=== PATIENT | male | born 1935 | race Caucasian/White ===

== ENCOUNTER 2019-07-06 22:26 | Emergency (ER) | payer MEDICARE, BC ==
--- NOTE | 2019-07-06 23:23 | EDM.PDOC ---
ED HPI GENERAL MEDICAL PROBLEM - General Chief Complaint: Chest Pain Stated Complaint: PAIN SHOULDER BLADE AND CHEST PAIN Time Seen by Provider: 07/06/19 22:48 Source of Information: Reports: Patient History Limitations: Reports: No Limitations - History of Present Illness INITIAL COMMENTS - FREE TEXT/NARRATIVE: This is an 84-year-old male. For the last 19 months he has been having an upper abdominal sensation of a guey rotten nauseas feeling. He was worked up by several physicians but they couldn't find anything so he got a new physician who did a CT scan of his chest that showed some emphysema and a 6 mm stone in the right renal pelvis that might cause intermittent obstruction of the UPJ. This does not seem to be the reason he is having these symptoms so they did an MRI of his abdomen showed a dilated common bile duct 1.4 cm however he is status post cholecystectomy and they did not see any residual stone also had some filling defects compatible with renal stones in the right kidney as seen on the CT scan but no other acute findings. They sent him down to a urologist in [place] Dr. 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 He was therefore sent down to Dr. Ordoñez who is going to be doing a coronary angiogram on the . In the meantime he still having this sensation. He is noted over the last couple of days that his left upper back is been somewhat sensitive and tender and tonight he had some sharp pain in the left shoulder blade when he was leaning against it he then had a sudden stabbing pain in his left anterior pectoralis area with a short hot spell and felt kind of shaky. At no time did he have any sort of chest tightness or pressure, no sweating no shortness of breath no radiation of anything into the jaw into the left axilla or down his left arm. But due to this sharp stabbing pain he comes to the ER for evaluation. Presently he says his left upper back is still bothering him slightly but his left chest is not. He denies any other acute symptoms. So once he gets the corneal angiogram and they find out what's going on and take care of it then he'll be scheduled for this lithotripsy as well as for upper endoscopy by GI. - Related Data Allergies Allergy/AdvReac Type Severity Reaction Status Date / Time No Known Allergies Allergy Verified 07/06/19 22:32 Home Meds: Home Meds . [No Known Home Meds] 07/06/19 [History] Past Medical History HEENT History: Reports: Impaired Vision Other HEENT History: Wears glasses Genitourinary History: Reports: Renal Calculus - Past Surgical History GI Surgical History: Reports: Appendectomy, Cholecystectomy, Hernia Repair/Other Social & Family History - Tobacco Use Smoking Status *Q: Never Smoker - Recreational Drug Use Recreational Drug Use: No ED ROS GENERAL - Review of Systems Review Of Systems: See Below Constitutional: Reports: Weakness. Denies: Fever, Chills HEENT: Reports: Other (Periodic blurred vision and maybe some lightheadedness or dizziness) Respiratory: Denies: Shortness of Breath, Cough Cardiovascular: Reports: Chest Pain. Denies: Dyspnea on Exertion, Syncope Endocrine: Reports: No Symptoms GI/Abdominal: Reports: Other (This strange upper abdominal sensation that is been going on for 19 months) : Reports: No Symptoms Musculoskeletal: Reports: Back Pain Skin: Reports: No Symptoms Neurological: Reports: Dizziness, Tremors. Denies: Headache, Paresthesia, Seizure, Syncope, Tingling, Difficulty Walking Psychiatric: Reports: No Symptoms Hematologic/Lymphatic: Reports: No Symptoms ED EXAM, GENERAL - Physical Exam Exam: See Below Exam Limited By: No Limitations General Appearance: Alert, WD/WN, No Apparent Distress Eye Exam: Bilateral Eye: Normal Inspection Ears: Normal External Exam Nose: Normal Inspection Throat/Mouth: Normal Inspection, Normal Lips, Normal Voice, No Airway Compromise Head: Normocephalic Neck: Supple Respiratory/Chest: No Respiratory Distress, Lungs Clear, Normal Breath Sounds, Other (Palpation of the pectoralis muscle in his anterior chest wall and the left I cannot really produce any sort of soreness or tenderness or sharp pain) Cardiovascular: Regular Rate, Rhythm, Diastolic Murmur, Other (There is a click and a diastolic murmur noted) GI/Abdominal: Soft, Non-Tender, No Organomegaly Back Exam: Normal Inspection, Full Range of Motion, Other (He does have rhomboid muscle tenderness and paraspinal muscle tenderness adjacent to the left scapula but no right upper back tenderness, I can reproduce on palpation of the paraspinal muscles the sensation he was having when he leans against his left upper back) Extremities: Normal Inspection, Normal Range of Motion. No: Pedal Edema Neurological: Alert, Oriented, CN II-XII Intact, No Motor/Sensory Deficits Psychiatric: Normal Affect, Normal Mood Skin Exam: Warm, Dry EKG INTERPRETATION EKG Date: 07/06/19 Time: 20:40 EKG Interpretation Comments: EKG shows a normal sinus rhythm rate of 73, there are no acute ST or T-wave changes, there is no acute ischemia noted, essentially he has a normal electrical pattern noted. Course - Vital Signs Last Recorded V/S: Last Vital Signs Temp 97.8 F 07/06/19 22:32 Pulse 82 07/06/19 22:32 Resp 15 07/06/19 22:32 BP 161/92 H 07/06/19 22:32 Pulse Ox 98 07/06/19 22:32 - Orders/Labs/Meds Orders: Active Orders 24 hr Category Date Time Status EKG Documentation Completion [RC] STAT Care 07/06/19 22:37 Active Chest 2V [CR] Stat Exams 07/06/19 23:14 Taken Labs: Laboratory Tests 07/06/19 07/06/19 07/07/19 Range/Units 22:40 22:40 00:53 WBC 8.62 (4.23-9.07) K/mm3 RBC 4.84 (4.63-6.08) M/mm3 Hgb 15.4 (13.7-17.5) gm/dl Hct 44.1 (40.1-51.0) % MCV 91.1 (79.0-92.2) fl MCH 31.8 (25.7-32.2) pg MCHC 34.9 (32.2-35.5) g/dl RDW Std Deviation 44.1 H (35.1-43.9) fL Plt Count 235 (163-337) K/mm3 MPV 9.5 (9.4-12.3) fl Neut % (Auto) 64.1 (34.0-67.9) % Lymph % (Auto) 24.9 (21.8-53.1) % [place] % (Auto) 8.1 (5.3-12.2) % Eos % (Auto) 2.2 (0.8-7.0) Baso % (Auto) 0.6 (0.1-1.2) % Neut # (Auto) 5.52 H (1.78-5.38) K/mm3 Lymph # (Auto) 2.15 (1.32-3.57) K/mm3 [place] # (Auto) 0.70 (0.30-0.82) K/mm3 Eos # (Auto) 0.19 (0.04-0.54) K/mm3 Baso # (Auto) 0.05 (0.01-0.08) K/mm3 Sodium 141 (136-145) mEq/L Potassium 4.1 (3.5-5.1) mEq/L Chloride 104 (98-107) mEq/L Carbon Dioxide 29 (21-32) mEq/L Anion Gap 12.1 (5-15) BUN 19 H (7-18) mg/dL Creatinine 1.2 (0.7-1.3) mg/dL Est Cr Clr Drug Dosing 43.61 mL/min Estimated GFR (MDRD) 58 (>60) mL/min BUN/Creatinine Ratio 15.8 (14-18) Glucose 104 (83-115) mg/dL Calcium 8.6 (8.5-10.1) mg/dL Total Bilirubin 0.5 (0.2-1.0) mg/dL AST 20 (15-37) U/L ALT 28 (16-63) U/L Alkaline Phosphatase 76 (46-116) U/L Troponin I < 0.017 < 0.017 (0.00-0.056) ng/mL Total Protein 6.9 (6.4-8.2) g/dl Albumin 3.7 (3.4-5.0) g/dl Globulin 3.2 gm/dL Albumin/Globulin Ratio 1.2 (1-2) - Radiology Interpretation Free Text/Narrative:: Chest x-ray does not show any acute lung changes, cardiac size is within normal limits, there is no obvious widened mediastinum. - Re-Assessments/Exams Free Text/Narrative Re-Assessment/Exam: 07/07/19 01:43 I spoke to the patient regarding his 2 negative cardiac enzymes over the last 2- 1/2 hours. I believe that his pain he had tonight was musculoskeletal in his upper back and possibly even his anterior chest. He went over again symptoms of cardiac pain which is typically tightness or squeezing or pressure oftentimes with sweating or shortness of breath and the pain sometimes radiates into the left jaw with a left armpit or down the left arm and if any of those occur he needs to return to the ER. Departure - Departure Time of Disposition: 01:44 Disposition: Home, Self-Care 01 Condition: Fair Clinical Impression: Musculoskeletal back pain, Chest pain, atypical Instructions: Musculoskeletal Pain Referrals: Robert Junior MD [Primary Care Provider] - Forms: ED Department Discharge Additional Instructions: Kidney with your Tylenol as needed for the discomfort, try heat or ice to the back as needed for the discomfort, continue with your cardiac workup and the angiogram, if your symptoms change and you have more of a pressure, tightness, squeezing sensation in the chest along with shortness of breath or sweating or possibly the pain going to your left jaw or into your left shoulder or down your left arm you need to return to the ER, follow-up with your family doctor as needed - My Orders Last 24 Hours: My Active Orders 07/06/19 22:37 EKG Documentation Completion [RC] STAT 07/06/19 23:14 Chest 2V [CR] Stat - Assessment/Plan Last 24 Hours: My Active Orders 07/06/19 22:37 EKG Documentation Completion [RC] STAT 07/06/19 23:14 Chest 2V [CR] Stat
--- NOTE | 2019-07-07 08:36 | CR ---
Chest: 2 views of the chest were obtained. Comparison: Prior chest CT study of 05/23/19, no prior chest x-rays available. Heart size is normal. Slight nodular density is noted within the left base. This is most likely due to mild scarring within the lingula as seen on chest CT. Lungs otherwise are clear. Bony structures appear unremarkable. Diaphragms are slightly flattened suggesting slight emphysematous change. Scattered degenerative endplate spurring is noted within the spine. Impression: 1. Mild emphysematous change. 2. Other findings as noted above which are felt to be incidental. 3. Nothing acute is seen on 2 view chest x-ray. Diagnostic code #2
== END 2019-07-07 01:57 | disposition home or self-care (01) ==
LOC: JD.ED 22:26
DX: M54.6 Pain in thoracic spine (principal); R07.89 Other chest pain
CPT/HCPCS: 36415; 71046; 71046-26; 80053; 84484; 85025; 93005; 93010; 99283; 99285-25

== ENCOUNTER 2020-05-25 08:54 | Emergency (ER) | payer MEDICARE, BC ==
--- NOTE | 2020-05-25 09:37 | EDM.PDOC ---
ED HPI GENERAL MEDICAL PROBLEM - General Chief Complaint: Chest Pain Stated Complaint: CHEST DISCOMFORT/ABDOMINAL PAIN Time Seen by Provider: 05/25/20 09:09 Source of Information: Reports: Patient History Limitations: Reports: No Limitations - History of Present Illness INITIAL COMMENTS - FREE TEXT/NARRATIVE: The patient presents with left upper back, left chest and left upper abdominal pain. This is a chronic problem. He said this all started when he fell getting out of a [place] in 2018. He had this pain constantly since then. He has seen multiple doctors and multiple specialists. He will get flair ups at times. He said last week he had an epidural injection done and he thought the pain was better but it came back just as strong the past couple of days. He has no fever, chills, or cough. He is waiting for a COVID 19 test result so he can seen ENT tomorrow. That was negative. He said some flexeril helped in the past. His on tramadol with tylenol for pain. Onset: Gradual Duration: Week(s): (2 years) Location: Reports: Chest, Abdomen, Back Quality: Reports: Sharp Severity: Moderate Improves with: Reports: Immobilization Worsens with: Reports: Breathing, Movement Associated Symptoms: Reports: Chest Pain. Denies: Cough, Fever/Chills, Headaches, Nausea/Vomiting, Shortness of Breath Chest Pain Score (Numeric/FACES): 8 - Related Data Allergies Allergy/AdvReac Type Severity Reaction Status Date / Time No Known Allergies Allergy Verified 05/25/20 09:14 Home Meds: Home Meds Cyclobenzaprine [Flexeril] 5 mg PO TID PRN #20 tab 05/25/20 [Rx] Past Medical History HEENT History: Reports: Impaired Vision Other HEENT History: Wears glasses Genitourinary History: Reports: Renal Calculus - Past Surgical History GI Surgical History: Reports: Appendectomy, Cholecystectomy, Hernia Repair/Other Social & Family History - Tobacco Use Smoking Status *Q: Never Smoker ED ROS GENERAL - Review of Systems Review Of Systems: See Below Constitutional: Reports: No Symptoms HEENT: Reports: No Symptoms Respiratory: Reports: No Symptoms Cardiovascular: Reports: Chest Pain Endocrine: Reports: No Symptoms GI/Abdominal: Reports: Abdominal Pain : Reports: No Symptoms Musculoskeletal: Reports: Back Pain ED EXAM, GENERAL - Physical Exam Exam: See Below Exam Limited By: No Limitations General Appearance: Alert, No Apparent Distress Ears: Normal External Exam Nose: Normal Inspection Head: Atraumatic, Normocephalic Neck: Normal Inspection Respiratory/Chest: No Respiratory Distress, Lungs Clear, Normal Breath Sounds Cardiovascular: Regular Rate, Rhythm, No Edema, No Murmur GI/Abdominal: Soft, Non-Tender, No Organomegaly, No Mass Back Exam: Other (Pain upon palpation to the left upper back) Extremities: Normal Inspection EKG INTERPRETATION EKG Date: 05/25/20 Time: 09:05 Rhythm: NSR Rate (Beats/Min): 88 [place]: Normal P-Wave: Present QRS: Normal ST-T: Normal QT: Normal Course - Vital Signs Last Recorded V/S: Last Vital Signs Temp 97.6 F 05/25/20 09:09 Pulse 86 05/25/20 09:09 Resp 18 05/25/20 09:09 BP 137/62 05/25/20 09:09 Pulse Ox 97 05/25/20 09:09 - Orders/Labs/Meds Orders: Active Orders 24 hr Category Date Time Status EKG 12 Lead [EKG Documentation Completion] [RC] STAT Care 05/25/20 09:19 Active - Re-Assessments/Exams Free Text/Narrative Re-Assessment/Exam: 05/25/20 09:37 I ordered an EKG and that shows a NSR with no acute changes. I will get him a prescription for some flexeril. Departure - Departure Time of Disposition: 09:40 Disposition: Home, Self-Care 01 Condition: Good Clinical Impression: Chest pain, atypical Chronic back pain Qualifiers: Back pain location: thoracic back pain Back pain laterality: left Qualified Code(s): M54.6 - Pain in thoracic spine; G89.29 - Other chronic pain Prescriptions: Cyclobenzaprine [Flexeril] 5 mg PO TID PRN #20 tab PRN Reason: Pain Additional Instructions: Take your medicine as prescribed. Take the flexeril every 8 hours as needed for pain. Follow up with Dr Crnae within a week. Follow up with the ENT doctor tomorrow. Please return if you are worse. Sepsis Event Note (ED) - Evaluation Sepsis Screening Result: No Definite Risk - Focused Exam Vital Signs: Vital Signs Temp Pulse Resp BP Pulse Ox 05/25/20 09:09 97.6 F 86 18 137/62 97 - My Orders Last 24 Hours: My Active Orders 05/25/20 09:19 EKG 12 Lead [EKG Documentation Completion] [RC] STAT - Assessment/Plan Last 24 Hours: My Active Orders 05/25/20 09:19 EKG 12 Lead [EKG Documentation Completion] [RC] STAT
== END 2020-05-25 09:45 | disposition home or self-care (01) ==
LOC: JD.ED 08:54
DX: R07.89 Other chest pain (principal); M54.6 Pain in thoracic spine; G89.29 Other chronic pain; R10.12 Left upper quadrant pain; Z90.49 Acquired absence of other specified parts of digestive tract; Z79.899 Other long term (current) drug therapy
CPT/HCPCS: 93005; 93010; 99283; 99284-25

== ENCOUNTER 2021-09-05 15:26 | Emergency (ER) | payer MEDICARE, BC ==
[2021-09-05] MEDS ORDERED: Ondansetron 4 MG/2 ML SDV IVPUSH ONE (15:48)
[2021-09-05] MEDS ORDERED: Sodium Chloride 0.9% 10 ML Syringe FLUSH PRN (15:48)
[2021-09-05] MEDS ORDERED: Sodium Chloride 0.9% 1,000 ML IV SCH (16:00)
[2021-09-05] MEDS ORDERED: Famotidine 20 MG/2 ML SDV IVPUSH ONE (16:07)
[2021-09-05] MEDS ORDERED: diphenhydrAMINE 50 MG/ML SDV IVPUSH ONE (16:07)
[2021-09-05] MEDS ORDERED: LORazepam 2 MG/ML SDV IVPUSH ONE (16:07)
--- NOTE | 2021-09-05 16:41 | EDM.PDOC ---
ED HPI GENERAL MEDICAL PROBLEM - General Chief Complaint: Gastrointestinal Problem Stated Complaint: DIZZY/VOMITING/SHAKY Time Seen by Provider: 09/05/21 15:36 Source of Information: Reports: Patient, Family History Limitations: Reports: No Limitations - History of Present Illness INITIAL COMMENTS - FREE TEXT/NARRATIVE: The patient presents with nausea, vomiting and shakiness. He had a SHIRA scan done for Parkinson's on in [place]. He said after that he had episodes of shaking. He said his whole body will shake. He is aware of everything when it happens. He can also walk around. He has never had this happen before. It comes and goes and the longest episode was about 2 hours. He also has some nausea and vomiting. He has no diarrhea. He has no fever, chi lls, cough, chest pain or shortness of breath. He is the most concerned about the shaking he is having. Onset: Gradual Duration: Day(s): (4) Location: Reports: Generalized Severity: Moderate Improves with: Reports: None Worsens with: Reports: None Associated Symptoms: Reports: Nausea/Vomiting. Denies: Chest Pain, Cough, Fever/Chills, Headaches, Shortness of Breath - Related Data Allergies Allergy/AdvReac Type Severity Reaction Status Date / Time No Known Allergies Allergy Verified 09/05/21 15:45 Home Meds: Home Meds Cyclobenzaprine [Flexeril] 5 mg PO TID PRN #20 tab 05/25/20 [Rx] Acetaminophen 325 mg PO Q6H PRN 09/05/21 [History] Cholecalciferol (Vitamin D3) [Vitamin D3] 25 mcg PO DAILY 09/05/21 [History] Pantoprazole Sodium [Protonix] 40 mg PO DAILY 09/05/21 [History] Zinc 50 mg PO DAILY 09/05/21 [History] buPROPion [buPROPion XL] 150 mg PO DAILY 09/05/21 [History] predniSONE [Prednisone] 20 mg PO DAILY #5 tablet 09/05/21 [Rx] traMADol [Ultram] 50 mg PO Q6HR PRN 09/05/21 [History] Past Medical History HEENT History: Reports: Impaired Vision Other HEENT History: Wears glasses Genitourinary History: Reports: Renal Calculus - Past Surgical History GI Surgical History: Reports: Appendectomy, Cholecystectomy, Hernia Repair/Other ED ROS GENERAL - Review of Systems Review Of Systems: See Below Constitutional: Reports: Malaise, Weakness, Fatigue. Denies: Fever, Chills HEENT: Reports: No Symptoms Respiratory: Reports: No Symptoms Cardiovascular: Reports: No Symptoms Endocrine: Reports: No Symptoms GI/Abdominal: Reports: Nausea, Vomiting. Denies: Abdominal Pain, Diarrhea : Reports: No Symptoms Musculoskeletal: Reports: No Symptoms Neurological: Reports: Other (shaking). Denies: Headache, Numbness, Tingling, Weakness ED EXAM, GI/ABD - Physical Exam Exam: See Below Exam Limited By: No Limitations General Appearance: Alert, No Apparent Distress Ears: Normal External Exam Nose: Normal Inspection Head: Atraumatic, Normocephalic Neck: Normal Inspection Respiratory/Chest: No Respiratory Distress, Lungs Clear, Normal Breath Sounds Cardiovascular: Regular Rate, Rhythm, No Edema, No Murmur GI/Abdominal Exam: Soft, Non-Tender, No Organomegaly, No Mass Back Exam: Normal Inspection Extremities: Normal Inspection #1 Interpretation EKG Date: 09/05/21 Time: 15:57 Rhythm: NSR Rate (Beats/Min): 96 [place]: Normal P-Wave: Present QRS: Normal ST-T: Normal QT: Normal EKG Interpretation Comments: PACs Course - Vital Signs Last Recorded V/S: Last Vital Signs Temp 98.5 F 09/05/21 15:42 Pulse 105 H 09/05/21 15:42 Resp 35 H 09/05/21 15:42 BP 144/66 H 09/05/21 15:42 Pulse Ox 92 L 09/05/21 15:42 - Orders/Labs/Meds Orders: Active Orders 24 hr Category Date Time Status Orthostatic Vital Signs [RC] ASDIRECTED Care 09/05/21 15:49 Active Peripheral IV Care [RC] . DIRECTED Care 09/05/21 15:49 Active Sodium Chloride 0.9% [Saline Flush] Med 09/05/21 15:48 Active 10 ml FLUSH ASDIRECTED PRN Peripheral IV Insertion Adult [OM.PC] Stat Oth 09/05/21 15:49 Ordered Medication Orders Sodium Chloride (Sodium Chloride 0.9% 10 Ml Syringe) 10 ml FLUSH ASDIRECTED PRN PRN Reason: Keep Vein Open Last Admin: 09/05/21 16:09 Dose: 10 ml Documented by: JENNA Labs: Laboratory Tests 09/05/21 09/05/21 09/05/21 Range/Units 15:45 15:45 15:45 WBC 5.76 (4.23-9.07) K/mm3 RBC 4.54 L (4.63-6.08) M/mm3 Hgb 14.1 (13.7-17.5) gm/dl Hct 41.9 (40.1-51.0) % MCV 92.3 H (79.0-92.2) fl MCH 31.1 (25.7-32.2) pg MCHC 33.7 (32.2-35.5) g/dl RDW Std Deviation 45.2 H (35.1-43.9) fL Plt Count 69 L D (163-337) K/mm3 MPV 10.3 (9.4-12.3) fl Neut % (Auto) 93.3 H (34.0-67.9) % Lymph % (Auto) 3.5 L (21.8-53.1) % [place] % (Auto) 3.0 L (5.3-12.2) % Eos % (Auto) 0 L (0.8-7.0) Baso % (Auto) 0.2 (0.1-1.2) % Neut # (Auto) 5.38 (1.78-5.38) K/mm3 Lymph # (Auto) 0.20 L (1.32-3.57) K/mm3 [place] # (Auto) 0.17 L (0.30-0.82) K/mm3 Eos # (Auto) 0.00 L (0.04-0.54) K/mm3 Baso # (Auto) 0.01 (0.01-0.08) K/mm3 Manual Slide Review Abnormal smear Sodium 139 (136-145) mEq/L Potassium 3.8 (3.5-5.1) mEq/L Chloride 103 (98-107) mEq/L Carbon Dioxide 22 (21-32) mEq/L Anion Gap 17.8 H (5-15) BUN 42 H (7-18) mg/dL Creatinine 1.6 H (0.7-1.3) mg/dL Est Cr Clr Drug Dosing 32.48 mL/min Estimated GFR (MDRD) 41 (>60) mL/min BUN/Creatinine Ratio 26.3 H (14-18) Glucose 209 H (70-99) mg/dL Hemoglobin A1c ( - 5.6) % Calcium 8.0 L (8.5-10.1) mg/dL Magnesium 1.8 (1.8-2.4) mg/dL Total Bilirubin 1.4 H (0.2-1.0) mg/dL AST 28 (15-37) U/L ALT 25 (16-63) U/L Alkaline Phosphatase 124 H (46-116) U/L Troponin I < 0.017 (0.00-0.056) ng/mL C-Reactive Protein 19.8 H* (<1.0) mg/dL Total Protein 6.3 L (6.4-8.2) g/dl Albumin 2.9 L (3.4-5.0) g/dl Globulin 3.4 gm/dL Albumin/Globulin Ratio 0.9 L (1-2) Lipase 95 (73-393) U/L Urine Color (Yellow) Urine Appearance (Clear) Urine pH (5.0-8.0) Ur Specific [place] (1.005-1.030) Urine Protein (Negative) Urine Glucose (UA) (Negative) Urine Ketones (Negative) Urine Occult Blood (Negative) Urine Nitrite (Negative) Urine Bilirubin (Negative) Urine Urobilinogen (0.2-1.0) Ur Leukocyte Esterase (Negative) Urine RBC (0-5) /hpf Urine WBC (0-5) /hpf Ur Squamous Epith Cells (0-5) /hpf Urine Bacteria (FEW) /hpf Urine Mucus (FEW) /hpf SARS-CoV-2 RNA ([place]IA) (NEGATIVE) 09/05/21 09/05/21 09/05/21 Range/Units 15:45 16:12 17:51 WBC (4.23-9.07) K/mm3 RBC (4.63-6.08) M/mm3 Hgb (13.7-17.5) gm/dl Hct (40.1-51.0) % MCV (79.0-92.2) fl MCH (25.7-32.2) pg MCHC (32.2-35.5) g/dl RDW Std Deviation (35.1-43.9) fL Plt Count (163-337) K/mm3 MPV (9.4-12.3) fl Neut % (Auto) (34.0-67.9) % Lymph % (Auto) (21.8-53.1) % [place] % (Auto) (5.3-12.2) % Eos % (Auto) (0.8-7.0) Baso % (Auto) (0.1-1.2) % Neut # (Auto) (1.78-5.38) K/mm3 Lymph # (Auto) (1.32-3.57) K/mm3 [place] # (Auto) (0.30-0.82) K/mm3 Eos # (Auto) (0.04-0.54) K/mm3 Baso # (Auto) (0.01-0.08) K/mm3 Manual Slide Review Sodium (136-145) mEq/L Potassium (3.5-5.1) mEq/L Chloride (98-107) mEq/L Carbon Dioxide (21-32) mEq/L Anion Gap (5-15) BUN (7-18) mg/dL Creatinine (0.7-1.3) mg/dL Est Cr Clr Drug Dosing mL/min Estimated GFR (MDRD) (>60) mL/min BUN/Creatinine Ratio (14-18) Glucose (70-99) mg/dL Hemoglobin A1c 5.9 H ( - 5.6) % Calcium (8.5-10.1) mg/dL Magnesium (1.8-2.4) mg/dL Total Bilirubin (0.2-1.0) mg/dL AST (15-37) U/L ALT (16-63) U/L Alkaline Phosphatase (46-116) U/L Troponin I (0.00-0.056) ng/mL C-Reactive Protein (<1.0) mg/dL Total Protein (6.4-8.2) g/dl Albumin (3.4-5.0) g/dl Globulin gm/dL Albumin/Globulin Ratio (1-2) Lipase (73-393) U/L Urine Color Yellow (Yellow) Urine Appearance Clear (Clear) Urine pH 5.5 (5.0-8.0) Ur Specific [place] 1.020 (1.005-1.030) Urine Protein 1+ H (Negative) Urine Glucose (UA) Negative (Negative) Urine Ketones Negative (Negative) Urine Occult Blood Trace-lysed H (Negative) Urine Nitrite Negative (Negative) Urine Bilirubin Negative (Negative) Urine Urobilinogen 1.0 (0.2-1.0) Ur Leukocyte Esterase Negative (Negative) Urine RBC 0-5 (0-5) /hpf Urine WBC 0-5 (0-5) /hpf Ur Squamous Epith Cells 0-5 (0-5) /hpf Urine Bacteria Moderate H (FEW) /hpf Urine Mucus Moderate H (FEW) /hpf SARS-CoV-2 RNA ([place]ALIA) Negative (NEGATIVE) Meds: Medications Generic Name Dose Route Start Last Admin Trade Name Freq PRN Reason Stop Dose Admin Sodium Chloride 10 ml 09/05/21 15:48 09/05/21 16:09 Sodium Chloride 0.9% 10 Ml Syringe FLUSH 10 ml ASDIRECTED PRN Administration Keep Vein Open Discontinued Medications Generic Name Dose Route Start Last Admin Trade Name Freq PRN Reason Stop Dose Admin Diphenhydramine HCl 25 mg 09/05/21 16:07 09/05/21 16:21 Diphenhydramine 50 Mg/Ml Sdv IVPUSH 09/05/21 16:08 25 mg ONETIME ONE Administration Famotidine 20 mg 09/05/21 16:07 09/05/21 16:20 Famotidine 20 Mg/2 Ml Sdv IVPUSH 09/05/21 16:08 20 mg ONETIME ONE Administration Sodium Chloride 1,000 mls @ 999 mls/hr 09/05/21 16:00 09/05/21 16:09 Normal Saline IV 09/05/21 16:59 999 mls/hr Q1H JOHNSON Administration Lorazepam 0.5 mg 09/05/21 16:07 09/05/21 16:22 Lorazepam 2 Mg/Ml Sdv IVPUSH 09/05/21 16:08 0.5 mg ONETIME ONE Administration Ondansetron HCl 4 mg 09/05/21 15:48 09/05/21 16:09 Ondansetron 4 Mg/2 Ml Sdv IVPUSH 09/05/21 15:49 4 mg ONETIME ONE Administration Prednisone 20 mg 09/05/21 18:37 Prednisone 20 Mg Tab PO 09/05/21 18:38 ONETIME ONE - Re-Assessments/Exams Free Text/Narrative Re-Assessment/Exam: 09/05/21 16:43 I ordered an IV NS 1L bolus, zofran 4mg IV, ativan 0.5mg IV, benadryl 25mg IV, pepcid 20mg IV, EKG, labs and UA. His EKG shows a NSR with no acute changes. 09/05/21 18:39 His platelets are low at 69. His anion gap is elevated at 17.8. His creatinine is elevated at 1.6. His glucose is 209. His A1C is 5.9. His total bili is elevated at 1.4. His troponin is negative. His CRP is elevated at 19.8. His UA shows no UTI. He is COVID negative. He feels better. I feel he was reacting to the dye they used. I will give him a dose of prednisone here and prescription for more. Departure - Departure Time of Disposition: 18:45 Disposition: Home, Self-Care 01 Condition: Good Clinical Impression: Allergic reaction Qualifiers: Encounter type: initial encounter Qualified Code(s): T78.40XA - Allergy, unspecified, initial encounter - Discharge Information *PRESCRIPTION DRUG MONITORING PROGRAM REVIEWED*: Not Applicable *COPY OF PRESCRIPTION DRUG MONITORING REPORT IN PATIENT RENATO: Not Applicable Prescriptions: predniSONE [Prednisone] 20 mg PO DAILY #5 tablet Referrals: Horace Cohn MD [Primary Care Provider] - 1 Week Forms: ED Department Discharge Additional Instructions: Drink plenty of fluids. Take prednisone 20mg daily for 5 days. Take pepcid 20mg daily for 7 days. Pepcid is more for your stomach but it helps in allergic reactions. It is a histamine sophie. Take benadryl 25mg every 6 hours as needed for symptoms. Follow up with Dr Cohn within a week. Please return if you are worse. Sepsis Event Note (ED) - Evaluation Sepsis Screening Result: No Definite Risk - Focused Exam Vital Signs: Vital Signs Temp Pulse Resp BP Pulse Ox 09/05/21 15:42 98.5 F 105 H 35 H 144/66 H 92 L - My Orders Last 24 Hours: My Active Orders 09/05/21 15:48 Sodium Chloride 0.9% [Saline Flush] 10 ml FLUSH ASDIRECTED PRN 09/05/21 15:49 Orthostatic Vital Signs [RC] ASDIRECTED Peripheral IV Care [RC] . DIRECTED Peripheral IV Insertion Adult [OM.PC] Stat - Assessment/Plan Last 24 Hours: My Active Orders 09/05/21 15:48 Sodium Chloride 0.9% [Saline Flush] 10 ml FLUSH ASDIRECTED PRN 09/05/21 15:49 Orthostatic Vital Signs [RC] ASDIRECTED Peripheral IV Care [RC] . DIRECTED Peripheral IV Insertion Adult [OM.PC] Stat
[2021-09-05 17:09] LABS: HEMOGLOBIN A1C 5.9 %
[2021-09-05] MEDS ORDERED: predniSONE 20 MG Tab PO ONE (18:37)
== END 2021-09-05 19:10 | disposition home or self-care (01) ==
LOC: JD.ED 15:26
DX: T78.40XA Allergy, unspecified, initial encounter (principal); I49.1 Atrial premature depolarization; R79.82 Elevated C-reactive protein (CRP); R74.8 Abnormal levels of other serum enzymes; Z20.822 Contact with and (suspected) exposure to COVID-19
CPT/HCPCS: 36415; 80053; 81001; 83036; 83690; 83735; 84484; 85025; 86140; 93005; 96374; 96375; 99284; J1200; J2060; J2405; J3490; J7030; J7512; U0002; 93010

== ENCOUNTER 2021-09-11 15:34 | Emergency (ER) | payer MEDICARE, BC ==
--- NOTE | 2021-09-11 16:18 | EDM.PDOC ---
ED HPI GENERAL MEDICAL PROBLEM - General Chief Complaint: Neuro Symptoms/Deficits Stated Complaint: STROKE ALERT Time Seen by Provider: 09/11/21 15:34 - History of Present Illness INITIAL COMMENTS - FREE TEXT/NARRATIVE: Chief complaint stroke alert Last known normal: 1400 Patient is got a complicated history. He is recently diagnosed with Parkinson's disease he was started on carbidopa levodopa half a pill 3 times a day this was started at the beginning of this week. Patient had a procedure done in [place] on where he had some sort of contrast. And his steadily declined since then. He was seen here on Monday started on steroid treatment. And it just seems that he has had a gradual decline until about 2:00 today he had a sudden decline where he developed some right facial weakness right-sided weakness and difficulty speaking. Neck Pain Score (Numeric/FACES): 6 - Related Data Allergies Allergy/AdvReac Type Severity Reaction Status Date / Time No Known Allergies Allergy Verified 09/11/21 16:09 Home Meds: Home Meds Cyclobenzaprine [Flexeril] 5 mg PO TID PRN #20 tab 05/25/20 [Rx] Acetaminophen 325 mg PO Q6H PRN 09/05/21 [History] Cholecalciferol (Vitamin D3) [Vitamin D3] 25 mcg PO DAILY 09/05/21 [History] Pantoprazole Sodium [Protonix] 40 mg PO DAILY 09/05/21 [History] Zinc 50 mg PO DAILY 09/05/21 [History] buPROPion [buPROPion XL] 150 mg PO DAILY 09/05/21 [History] predniSONE [Prednisone] 20 mg PO DAILY #5 tablet 09/05/21 [Rx] traMADol [Ultram] 50 mg PO Q6HR PRN 09/05/21 [History] Past Medical History HEENT History: Reports: Impaired Vision Other HEENT History: Wears glasses Genitourinary History: Reports: Renal Calculus - Past Surgical History GI Surgical History: Reports: Appendectomy, Cholecystectomy, Hernia Repair/Other ED ROS GENERAL - Review of Systems Review Of Systems: See Below Constitutional: Reports: Weakness, Fatigue HEENT: Reports: No Symptoms Respiratory: Reports: No Symptoms Cardiovascular: Reports: No Symptoms Endocrine: Reports: No Symptoms GI/Abdominal: Reports: Decreased Appetite. Denies: Abdominal Pain : Reports: No Symptoms Musculoskeletal: Reports: No Symptoms Skin: Reports: No Symptoms Neurological: Reports: Difficulty Walking, Weakness, Change in Speech Psychiatric: Reports: No Symptoms ED EXAM, GENERAL - Physical Exam Exam: See Below Exam Limited By: No Limitations General Appearance: Alert, Other (Significant right facial weakness with speech difficulties. NIH stroke score 15.) Eye Exam: Bilateral Eye: Normal Inspection, PERRL Ears: Normal External Exam, Normal Canal, Hearing Grossly Normal, Normal TMs Nose: Normal Inspection, Normal Mucosa, No Blood Throat/Mouth: Normal Inspection, Normal Lips, Normal Gums, Normal Oropharynx, Normal Voice, No Airway Compromise Head: Atraumatic, Normocephalic Neck: Normal Inspection, Supple, Non-Tender, Full Range of Motion. No: Lymphadenopathy (L), Lymphadenopathy (R) Respiratory/Chest: No Respiratory Distress, Lungs Clear, Normal Breath Sounds Cardiovascular: Regular Rate, Rhythm, No Edema, No Rub GI/Abdominal: Normal Bowel Sounds, Soft, Non-Tender Back Exam: Normal Inspection. No: CVA Tenderness (L), CVA Tenderness (R) Neurological: Other (Significant weakness on the right side) Skin Exam: Warm, Dry, Intact #1 Interpretation EKG Date: 09/11/21 Rhythm: Other (Sinus with multiple PACs at times representing bigeminy) Rate (Beats/Min): 94 [place]: Normal P-Wave: Present QRS: Normal ST-T: Normal QT: Normal Comparison: No Change (No significant change from 09/05/2021) Course - Vital Signs Last Recorded V/S: Last Vital Signs Temp 35.8 C L 09/11/21 16:10 Pulse 97 09/11/21 16:30 Resp 32 H 09/11/21 16:30 BP 96/74 09/11/21 16:30 Pulse Ox 100 09/11/21 16:30 - Orders/Labs/Meds Orders: Active Orders 24 hr Category Date Time Status Ang Head [CT] Stat Exams 09/11/21 16:37 Taken Ang Neck [CT] Stat Exams 09/11/21 16:37 Taken Head wo Cont [CT] Routine Exams 09/11/21 15:50 Taken Blood Culture x2 Reflex Set [OM.PC] Stat Oth 09/11/21 17:32 Ordered Saline Lock Insert [OM.PC] Routine Oth 09/11/21 16:20 Ordered Labs: Laboratory Tests 09/11/21 09/11/21 09/11/21 Range/Units 15:42 16:22 16:50 WBC 20.49 H (4.23-9.07) K/mm3 RBC 4.33 L (4.63-6.08) M/mm3 Hgb 13.5 L (13.7-17.5) gm/dl Hct 39.8 L (40.1-51.0) % MCV 91.9 (79.0-92.2) fl MCH 31.2 (25.7-32.2) pg MCHC 33.9 (32.2-35.5) g/dl RDW Std Deviation 45.3 H (35.1-43.9) fL Plt Count 23 L* (163-337) K/mm3 Neut % (Auto) 96.5 H (34.0-67.9) % Lymph % (Auto) 2.3 L (21.8-53.1) % [place] % (Auto) 0.4 L (5.3-12.2) % Eos % (Auto) 0.1 L (0.8-7.0) Baso % (Auto) 0.0 L (0.1-1.2) % Neut # (Auto) 19.76 H (1.78-5.38) K/mm3 Lymph # (Auto) 0.47 L (1.32-3.57) K/mm3 [place] # (Auto) 0.09 L (0.30-0.82) K/mm3 Eos # (Auto) 0.02 L (0.04-0.54) K/mm3 Baso # (Auto) 0.01 (0.01-0.08) K/mm3 Manual Slide Review Abnormal smear PT (9.7-12.0) SECONDS INR APTT (21.7-31.4) SECONDS D-Dimer, Quantitative (0.19-0.50) mg/L Sodium (136-145) mEq/L Potassium (3.5-5.1) mEq/L Chloride (98-107) mEq/L Carbon Dioxide (21-32) mEq/L Anion Gap (5-15) BUN (7-18) mg/dL Creatinine (0.7-1.3) mg/dL Est Cr Clr Drug Dosing mL/min Estimated GFR (MDRD) (>60) mL/min BUN/Creatinine Ratio (14-18) Glucose (70-99) mg/dL POC Glucose 156 H (70-99) mg/dL Calcium (8.5-10.1) mg/dL Total Bilirubin (0.2-1.0) mg/dL AST (15-37) U/L ALT (16-63) U/L Alkaline Phosphatase (46-116) U/L Troponin I (0.00-0.056) ng/mL Total Protein (6.4-8.2) g/dl Albumin (3.4-5.0) g/dl Globulin gm/dL Albumin/Globulin Ratio (1-2) SARS-CoV-2 RNA ([place]) Negative (NEGATIVE) 09/11/21 09/11/21 Range/Units 16:50 16:50 WBC (4.23-9.07) K/mm3 RBC (4.63-6.08) M/mm3 Hgb (13.7-17.5) gm/dl Hct (40.1-51.0) % MCV (79.0-92.2) fl MCH (25.7-32.2) pg MCHC (32.2-35.5) g/dl RDW Std Deviation (35.1-43.9) fL Plt Count (163-337) K/mm3 Neut % (Auto) (34.0-67.9) % Lymph % (Auto) (21.8-53.1) % [place] % (Auto) (5.3-12.2) % Eos % (Auto) (0.8-7.0) Baso % (Auto) (0.1-1.2) % Neut # (Auto) (1.78-5.38) K/mm3 Lymph # (Auto) (1.32-3.57) K/mm3 [place] # (Auto) (0.30-0.82) K/mm3 Eos # (Auto) (0.04-0.54) K/mm3 Baso # (Auto) (0.01-0.08) K/mm3 Manual Slide Review PT 12.7 H (9.7-12.0) SECONDS INR 1.15 APTT 29.1 (21.7-31.4) SECONDS D-Dimer, Quantitative 16.36 H (0.19-0.50) mg/L Sodium 137 (136-145) mEq/L Potassium 4.5 (3.5-5.1) mEq/L Chloride 104 (98-107) mEq/L Carbon Dioxide 26 (21-32) mEq/L Anion Gap 11.5 (5-15) BUN 84 H D (7-18) mg/dL Creatinine 2.2 H (0.7-1.3) mg/dL Est Cr Clr Drug Dosing 23.62 mL/min Estimated GFR (MDRD) 29 (>60) mL/min BUN/Creatinine Ratio 38.2 H (14-18) Glucose 183 H (70-99) mg/dL POC Glucose (70-99) mg/dL Calcium 7.7 L (8.5-10.1) mg/dL Total Bilirubin 1.8 H (0.2-1.0) mg/dL AST 37 (15-37) U/L ALT 16 (16-63) U/L Alkaline Phosphatase 224 H (46-116) U/L Troponin I 1.091 H* (0.00-0.056) ng/mL Total Protein 5.4 L (6.4-8.2) g/dl Albumin 2.3 L (3.4-5.0) g/dl Globulin 3.1 gm/dL Albumin/Globulin Ratio 0.7 L (1-2) SARS-CoV-2 RNA ([place]) (NEGATIVE) Meds: Medications Discontinued Medications Generic Name Dose Route Start Last Admin Trade Name Freq PRN Reason Stop Dose Admin Alteplase, Recombinant Confirm 09/11/21 16:32 09/11/21 16:54 Alteplase 100 Mg Vial Administered 09/11/21 16:33 Not Given Dose 100 mg .ROUTE .STK-MED ONE Sodium Chloride 100 mls @ 60 mls/hr 09/11/21 17:30 09/11/21 17:30 Normal Saline IV 60 mls/hr ASDIRECTED JOHNSON Administration Iopamidol 100 ml 09/11/21 17:29 09/11/21 17:30 Iopamidol 755 Mg/Ml 100 Ml Bottle IVPUSH 09/11/21 17:30 100 ml ONETIME ONE Administration Sodium Chloride 10 ml 09/11/21 16:20 09/11/21 16:54 Sodium Chloride 0.9% 10 Ml Syringe FLUSH 10 ml ASDIRECTED PRN Administration Keep Vein Open Sodium Chloride 10 ml 09/11/21 17:29 09/11/21 17:30 Sodium Chloride 0.9% 10 Ml Syringe FLUSH 09/11/21 17:30 10 ml ONETIME ONE Administration - Re-Assessments/Exams Free Text/Narrative Re-Assessment/Exam: 09/11/21 16:57 CT V rad reported at 1610 no acute changes. There is an area that is 8 mm focal hypodensity in the left caudate nucleus consistent with a remote lacunar infarct this was discussed with Dr. Coleman we thought the patient would be thrombolytic candidate however we are awaiting labs today his platelet count on the 12th was 69,000 well below the 100,000 threshold to give thrombolytics CVA patient is. So thrombolytics were held. The patient will undergo CT angio head and neck here while we are trying to arrange transportation. The patient will go to the emergency room at [facility] Dr. Trujillo excepted at 1644. 09/11/21 17:40 Patient was get loaded up we finally got her labs back and they are very concerning his white count is up significantly 20,490 from 5760 on the 12th. His platelet count has dropped from 69,000-23,000 his D-dimer is elevated to 16.36 troponin is 1.091 unfortunately I could not get blood cultures lactic acid and urine obtained as he was already loaded up as well as a chest x-ray. Did discuss situation with Dr. Trujillo. The emergency room accepting physician. Departure - Departure Time of Disposition: 17:00 Disposition: DC/Tfer to Acute Hospital 02 Condition: Serious Clinical Impression: CVA (cerebral vascular accident), Thrombocytopenia - Discharge Information Referrals: Horace Cohn MD [Primary Care Provider] - Forms: ED Department Discharge Sepsis Event Note (ED) - Focused Exam Vital Signs: Vital Signs Temp Pulse Resp BP Pulse Ox 09/11/21 16:30 97 32 H 96/74 100 09/11/21 16:10 35.8 C L 91 32 H 98/60 97 - My Orders Last 24 Hours: My Active Orders 09/11/21 15:50 Head wo Cont [CT] Routine 09/11/21 16:20 Saline Lock Insert [OM.PC] Routine 09/11/21 16:37 Ang Head [CT] Stat Ang Neck [CT] Stat 09/11/21 17:32 Blood Culture x2 Reflex Set [OM.PC] Stat - Assessment/Plan Last 24 Hours: My Active Orders 09/11/21 15:50 Head wo Cont [CT] Routine 09/11/21 16:20 Saline Lock Insert [OM.PC] Routine 09/11/21 16:37 Ang Head [CT] Stat Ang Neck [CT] Stat 09/11/21 17:32 Blood Culture x2 Reflex Set [OM.PC] Stat
[2021-09-11] MEDS ORDERED: Sodium Chloride 0.9% 10 ML Syringe FLUSH PRN (16:20)
[2021-09-11] MEDS ORDERED: Iopamidol 755 Mg/ML 100 ML Bottle IVPUSH ONE (17:29)
[2021-09-11] MEDS ORDERED: Sodium Chloride 0.9% 10 ML Syringe FLUSH ONE (17:29)
[2021-09-11] MEDS ORDERED: Sodium Chloride 0.9% 100 ML IV SCH (17:30)
--- NOTE | 2021-09-12 08:03 | CT ---
Head CT Technique: Multiple axial sections through the brain were obtained. Intravenous contrast was not utilized. Reconstructed coronal and sagittal images were obtained. Comparison: Prior brain MRI of 08/19/19. Findings: Ventricles along with basal cisterns and sulci over the convexities are mildly prominent. Mild diminished density is noted within portions of the periventricular white matter which most likely represent small vessel ischemic demyelination change. Old infarct is noted slightly anterior to the right caudate head. Small low density area is noted within the head of the left caudate nucleus compatible with what appears to be a 7 mm old infarct. This is an interval change from prior MRI. No other abnormal parenchymal densities are seen. No evidence of intracranial hemorrhage. No midline shift or mass-effect is seen. Bone window settings were reviewed. No acute calvarial abnormality is seen. Visualized mastoid sinuses and paranasal sinuses show nothing acute. Impression: 1. Senescent change as described above. 2. No acute intracranial abnormality is appreciated. 3. If patient has sufficient symptoms, MRI study could then be obtained to further evaluate. Diagnostic code #2 I agree with preliminary report from [facility], finalized on 09/11/21, 5:02 PM MECHANICAL ENGINEERING INTERN, code 1
--- NOTE | 2021-09-12 08:11 | CT ---
CT angiogram of the brain Technique: Multiple axial sections through the brain were obtained. Intravenous contrast was utilized during the arterial phase. Study was performed as a CT angiogram protocol. Multiple MIP images were obtained. Comparison: Prior head CT study performed earlier on the same day. Findings: Posterior circulation: Distal vertebral arteries are patent. Basilar artery appears patent. There is normal flow into both posterior cerebral arteries. No stenosis is seen. Anterior circulation: Distal internal carotid arteries show evidence of mild plaque within the carotid siphon. There is flow into both middle cerebral arteries and into the anterior cerebral arteries. No stenosis is seen. Impression: 1. Mild plaque within both carotid siphons. 2. Other portions of the CT angiogram study of the brain appear within normal limits. Diagnostic code #2 I agree with preliminary report from [facility], finalized on 09/11/21, 6:35 PM ELECTRICIAN TECHNICIAN, code 1
--- NOTE | 2021-09-12 08:13 | CT ---
CT neck angiogram Technique: Multiple axial sections through the neck were obtained. Study was performed without contrast as well as intravenous contrast being utilized during the arterial phase. Multiple MIP images were then obtained. Comparison: No prior neck angiogram is available. Posterior circulation: Both vertebral arteries are patent. Basilar artery is patent. No stenosis is seen. Anterior circulation: Both common carotid arteries are patent. There is some plaque being seen within the right internal carotid artery with calcified plaque. Minimal narrowing and plaque is seen within this area which is felt not to be hemodynamically significant. Both proximal external carotid arteries are patent. Impression: 1. Slight narrowing and mild atherosclerotic plaque within the distal right internal carotid artery. This is felt not to be hemodynamically significant. 2. No additional abnormality is appreciated on CT angiogram study of the neck. Diagnostic code #2 I agree with preliminary report from [facility], finalized on 09/11/21, 6:37 PM COORDINATOR OF ONLINE PROGRAMS, code 2
== END 2021-09-11 17:45 ==
LOC: JD.ED 15:34
DX: I63.9 Cerebral infarction, unspecified (principal); D69.6 Thrombocytopenia, unspecified; I49.1 Atrial premature depolarization; Z20.822 Contact with and (suspected) exposure to COVID-19
CPT/HCPCS: 36415; 70450; 70496; 70498; 80053; 82947; 84484; 85025; 85379; 85610; 85730; 93005; 99285; Q9967; U0002; 93010